=== PATIENT | male | born 1945 | race Caucasian/White ===

== ENCOUNTER → 2024-09-16 10:58 | Outpatient (REF) | payer MEDICARE, SELFPAY | LOC: HWRAD 10:58 | PROVIDERS: ATTENDING PHYSICIAN Nurse Practitioner Family | DX: R05.9 Cough, unspecified (principal) | CPT/HCPCS: 71046 ==

== ENCOUNTER → 2024-11-18 10:57 | Outpatient (REF) | payer MEDICARE, SELFPAY | LOC: HWRAD 10:57 | DX: J18.9 Pneumonia, unspecified organism (principal) | CPT/HCPCS: 71046 ==

== ENCOUNTER → 2025-05-26 10:16 | Outpatient (REF) | payer MEDICARE, SELFPAY | LOC: HWRAD 10:16 | PROVIDERS: ATTENDING PHYSICIAN Internal Medicine | DX: K59.00 Constipation, unspecified (principal) | CPT/HCPCS: 74018 ==